=== PATIENT | male | born 1950 | race Caucasian/White ===

== ENCOUNTER 2018-01-03 07:46 | Day surgery (SDC) | payer OTHER ==
[~2018-01-03 07:46] MED LIST: CHONDR SU A NA/HYALUR INTRAOC KIT (SURGICARE) ONE; EPINEPHRINE INJ/PF 1 MG/1 ML AMPULE ONE; KETOROLAC TROMETHAMINE 0.45% 4 DROP/0.4 ML DROPERETTE OD PRN; LIDOCAINE 1% INJ-PF (10 MG/ML) 30 ML SDV ONE; TOBRAMYCIN SULFATE/DEXAMETH OPH OINTMENT 3.5 GM ONE
[2018-01-03] MEDS: TETRACAINE HCL 0.5% OPH SOLN 0.6 ML DROPERETTE OD PRN ×3 (08:07→08:43)
[2018-01-03] MEDS: TROPICAMIDE 1% OPH SOLN 3 ML OD PRN ×3 (08:08→08:32)
[2018-01-03] MEDS: CYCLOPENTOLATE 0.2%/PHENYLEPHRINE 1% OPH SOLN 2 ML OD PRN ×3 (08:08→08:32)
[2018-01-03] MEDS: BESIFLOXACIN HCL 0.6% OPH SUSP 5 ML BOTTLE OD PRN ×3 (08:09→09:00)
[2018-01-03] MEDS ORDERED: MIDAZOLAM 2 MG/2 ML INJ ONE (08:28)
[2018-01-03] MEDS ORDERED: FENTANYL CITRATE INJ/PF 100 MCG/2 ML AMPUL ONE (08:28)
== END 2018-01-03 09:51 | disposition home or self-care (01) ==
LOC: SC 07:46
PROVIDERS: ATTEND Ophthalmology
PROC: 08RJ3JZ Replacement of Right Lens with Synthetic Substitute, Percutaneous Approach (ICD-10-PCS; principal; 2018-01-03 08:30)
DX: H25.11 Age-related nuclear cataract, right eye (principal); J44.9 Chronic obstructive pulmonary disease, unspecified; K21.9 Gastro-esophageal reflux disease without esophagitis; I10 Essential (primary) hypertension; E78.00 Pure hypercholesterolemia, unspecified; E03.9 Hypothyroidism, unspecified; M19.90 Unspecified osteoarthritis, unspecified site; N40.0 Benign prostatic hyperplasia without lower urinary tract symptoms; Z86.73 Personal history of transient ischemic attack (TIA), and cerebral infarction without residual deficits; Z88.5 Allergy status to narcotic agent
CPT/HCPCS: 66984; V2630; J2250; J3490 ×3; J0171; J3010; 142

== ENCOUNTER 2018-01-17 08:04 | Day surgery (SDC) | payer OTHER ==
[~2018-01-17 08:04] MED LIST changes: -CHONDR SU A NA/HYALUR INTRAOC KIT (SURGICARE) ONE; -EPINEPHRINE INJ/PF 1 MG/1 ML AMPULE ONE; -KETOROLAC TROMETHAMINE 0.45% 4 DROP/0.4 ML DROPERETTE OD PRN; +KETOROLAC TROMETHAMINE 0.45% 4 DROP/0.4 ML DROPERETTE OS PRN; -LIDOCAINE 1% INJ-PF (10 MG/ML) 30 ML SDV ONE; -TOBRAMYCIN SULFATE/DEXAMETH OPH OINTMENT 3.5 GM ONE
[2018-01-17] MEDS ORDERED: TOBRAMYCIN SULFATE/DEXAMETH OPH OINTMENT 3.5 GM ONE (08:31)
[2018-01-17] MEDS ORDERED: LIDOCAINE 1% INJ-PF (10 MG/ML) 30 ML SDV ONE (08:31)
[2018-01-17] MEDS ORDERED: CHONDR SU A NA/HYALUR INTRAOC KIT (SURGICARE) ONE (08:31)
[2018-01-17] MEDS ORDERED: EPINEPHRINE INJ/PF 1 MG/1 ML AMPULE ONE (08:31)
[2018-01-17] MEDS: CYCLOPENTOLATE 0.2%/PHENYLEPHRINE 1% OPH SOLN 2 ML OS PRN ×3 (09:02→09:35)
[2018-01-17] MEDS: TROPICAMIDE 1% OPH SOLN 3 ML OS PRN ×3 (09:02→09:35)
[2018-01-17] MEDS: BESIFLOXACIN HCL 0.6% OPH SUSP 5 ML BOTTLE OS PRN ×3 (09:03→10:10)
[2018-01-17] MEDS: TETRACAINE HCL 0.5% OPH SOLN 0.6 ML DROPERETTE OS PRN ×3 (09:04→09:50)
[2018-01-17] MEDS ORDERED: FENTANYL CITRATE INJ/PF 100 MCG/2 ML AMPUL ONE (09:35)
[2018-01-17] MEDS ORDERED: MIDAZOLAM 2 MG/2 ML INJ ONE (09:35)
[2018-01-17] MEDS ORDERED: ONDANSETRON HCL INJ/PF 4 MG/2 ML SDV ONE (09:35)
[2018-01-17] MEDS ORDERED: BALANCED SALT IRRIG SOLN COMB2 15 ML BOTTLE ONE (09:54)
== END 2018-01-17 10:52 | disposition home or self-care (01) ==
LOC: SC 08:04
PROVIDERS: ATTEND Ophthalmology
DX: H25.12 Age-related nuclear cataract, left eye (principal); Z98.41 Cataract extraction status, right eye; M19.90 Unspecified osteoarthritis, unspecified site; J44.9 Chronic obstructive pulmonary disease, unspecified; E78.00 Pure hypercholesterolemia, unspecified; E03.9 Hypothyroidism, unspecified; F17.210 Nicotine dependence, cigarettes, uncomplicated; Z86.73 Personal history of transient ischemic attack (TIA), and cerebral infarction without residual deficits; Z79.899 Other long term (current) drug therapy; Z79.891 Long term (current) use of opiate analgesic; Z88.5 Allergy status to narcotic agent
CPT/HCPCS: 66984; V2630; J2250; J3490 ×4; J0171; J3010; J2405; 142

== ENCOUNTER 2018-12-26 14:37 | Emergency (ER) | payer OTHER, MEDICARE, MEDICAID ==
[2018-12-26] MEDS ORDERED: LIDOCAINE 2% URO-JET 5 ML KIT MM ONE (15:06)
--- NOTE | 2018-12-26 15:31 | ER Document Report ---
ED General - General Chief Complaint: Urinary Retention Stated Complaint: URINARY ISSUES Time Seen by Provider: 12/26/18 15:00 Primary Care Provider: CAROLINA REDDY [NO LOCAL MD] - Follow up as needed Mode of Arrival: Ambulatory Information source: Patient, Dr. Mejia, [facility] Records Notes: 68-year-old male with COPD, enlarged prostate who is postop day 1 from a right inguinal hernia repair presents with concern for inability to urinate. Patient states that his last normal urination was 17 hours prior to arrival. He states since that time he has just been "dribbling". Nursing spoke to the surgeon Dr. Mccarthy who advised an indwelling Prince and discharge home. Patient denies any abdominal pain, nausea, vomiting, testicular pain. Patient does have significant testicular swelling. TRAVEL OUTSIDE OF THE [place] IN LAST 30 DAYS: No - HPI Onset: Yesterday Onset/Duration: Sudden Quality of pain: No pain Severity: None Pain Level: Denies Associated symptoms: None Exacerbated by: Denies Relieved by: Denies Similar symptoms previously: No Recently seen / treated by doctor: Yes - Related Data Allergies/Adverse Reactions: morphine Adverse Reaction (Intermediate, Verified 01/15/18 12:07) Nausea, vomiting Past Medical History - General Information source: Patient, Dr. Mejia, [facility] Records - Social History Smoking Status: Current Every Day Smoker Cigarette use (# per day): Yes - 10 Chew tobacco use (# tins/day): No Smoking Education Provided: Yes - Smoking cessation counseling was provided for 4 minutes at the bedside Frequency of alcohol use: None Drug Abuse: None Lives with: Family Family History: Reviewed & Not Pertinent Patient has suicidal ideation: No Patient has homicidal ideation: No - Past Medical History Cardiac Medical History: Denies: Hx Heart Attack, Hx Hypertension Pulmonary Medical History: Denies: Hx Asthma Neurological Medical History: Reports: Hx Cerebrovascular Accident - SILENT STROKE FOUND WITH NUCLEAR TEST. Denies: Hx Seizures Renal/ Medical History: Denies: Hx Peritoneal Dialysis GI Medical History: Denies: Hx Hepatitis, Hx Hiatal Hernia - ING HERNIA WAITING FOR SX, Hx Ulcer Infectious Medical History: Denies: Hx Hepatitis Past Surgical History: Denies: Hx Open Heart Surgery, Hx Pacemaker Review of Systems - Review of Systems Notes: REVIEW OF SYSTEMS: CONSTITUTIONAL : Denies fever, chills, or sweats. Denies recent illness. Denies weight loss, recent hospitalizations. EENT: Denies visual changes, eye pain. Denies sore throat, oral lesions, difficulty swallowing. CARDIOVASCULAR: Denies chest pain. Denies palpitations. Denies lower extremity edema. RESPIRATORY: Denies cough. Denies shortness of breath, wheezing. GASTROINTESTINAL: Denies abdominal pain or distention. Denies nausea, vomiting, or diarrhea. Denies blood in vomitus, stools, or per rectum. Denies black, tarry stools. Denies constipation. GENITOURINARY: Denies painful urination, frequency, blood in urine, testicular pain or penile discharge. MUSCULOSKELETAL: Denies back or neck pain or stiffness. Denies joint pain or swelling. SKIN: Denies rash, lesions or sores. HEMATOLOGIC : Denies easy bruising or bleeding. LYMPHATIC: Denies swollen glands. NEUROLOGICAL: Denies confusion or altered mental status. Denies loss of consciousness. Denies dizziness or lightheadedness. Denies headache. Denies weakness or paralysis. Denies problems difficulty with ambulation, slurred speech. Denies sensory loss, numbness, or tingling. Denies seizures. PSYCHIATRIC: Denies anxiety or stress. Denies depression, suicidal ideation, or Physical Exam - Vital signs Vitals: Temp Pulse Resp BP Pulse Ox 98.0 F 79 25 H 124/87 H 96 12/26/18 14:55 12/26/18 14:55 12/26/18 14:55 12/26/18 14:55 12/26/18 14:55 - Notes Notes: PHYSICAL EXAMINATION: GENERAL: Well-appearing, well-nourished and in no acute distress. HEAD: Atraumatic, normocephalic. EYES: Pupils equal round and reactive to light, extraocular movements intact, sclera anicteric, conjunctiva are normal. ENT: Nares patent, oropharynx clear without exudates. Moist mucous membranes. NECK: Normal range of motion, supple without lymphadenopathy LUNGS: Breath sounds clear to auscultation bilaterally and equal. No wheezes rales or rhonchi. HEART: Regular rate and rhythm without murmurs ABDOMEN: Soft, nontender, nondistended abdomen. No guarding, no rebound. No masses appreciated. Musculoskeletal: Normal range of motion, no pitting or edema. No cyanosis. : Testicular swelling, ecchymosis. Surgical incision in the right inguinal region is clean dry and intact. Bedside ultrasound shows urinary retention with a bladder volume of 600 cc. NEUROLOGICAL: Cranial nerves grossly intact. Normal speech, normal gait. Normal sensory, motor exams PSYCH: Normal mood, normal affect. SKIN: Warm, Dry, normal turgor, no rashes or lesions noted. Course - Re-evaluation Re-evalutation: Temp Pulse Resp BP Pulse Ox 98.0 F 79 25 H 124/87 H 96 12/26/18 14:55 12/26/18 14:55 12/26/18 14:55 12/26/18 14:55 12/26/18 14:55 12/26/18 15:29 68-year-old male status post inguinal hernia repair presents with urinary retention. Vital signs reviewed and within normal limits. Patient does not appear toxic or dehydrated. He is in no acute distress. Bedside ultrasound was performed and confirmed urinary retention with a bladder volume of 600 cc. Prince was placed after Urojet insertion. 12/26/18 16:04 Prince catheter placed and thousand cc of volume output was recorded. Leg bag and caring instructions were given to the patient. He was advised to follow-up with his surgeon as scheduled. Patient was evaluated and treated as appropriate for the patient's presenting symptoms and complaint, with consideration of any critical or life threatening conditions that may be associated with their obtained history and exam as noted above. All results were discussed with patient. Patient provided the opportunity to ask questions, and express concerns. Patient was educated on treatments based on their presumed diagnosis as noted above. At this time we will discharge the patient with return precautions and follow-up recommendations. Verbal discharge instructions given a the bedside. Medication warnings reviewed. Patient is in agreement with this plan and has verbalized understanding of return precautions. After careful consideration I feel that that patient can be safely discharged from the emergency department, they were advised to followup with a primary care physician in 2-3 days. Dictation on this chart was performed using voice recognition software and may result in unintended grammatical, spelling, syntax or errors. - Vital Signs Vital signs: Temp Pulse Resp BP Pulse Ox 98.0 F 70 14 113/79 97 12/26/18 17:45 12/26/18 17:45 12/26/18 17:45 12/26/18 17:45 12/26/18 17:45 Discharge - Discharge Clinical Impression: Urinary retention, Prince catheter in place Condition: Good Disposition: HOME, SELF-CARE Instructions: Prince Catheter Care ([facility]), Urinary Retention ([facility]) Additional Instructions: Please follow-up with your surgeon Dr. Mccarthy as scheduled. Please return to the emergency department with any concerns or problems with your Prince catheter. Follow up with your [id number] hours for further care or return to the ED IMMEDIATELY if symptoms worsen or you have any concerns. If you cannot afford to follow up with your primary care physician a list of low cost clinics have been provided at the end of your discharge papers as well. Most prescribed medications have multiple side effects. The safest thing to do is when filling your prescription speak to your pharmacist regarding possible interactions with your normal home medications and over the counter medications such as Ibuprofen, Tylenol, Benadryl. If you experience any symptoms that cause you discomfort or concern you should discontinue the medication immediately and return to the emergency room or call your primary care physician. Forms: Elevated Blood Pressure Referrals: LOCAL,NO [NO LOCAL MD] - Follow up as needed
[2018-12-26 17:46] VITALS: BP 113/79
== END 2018-12-26 17:47 | disposition home or self-care (01) ==
LOC: ER 14:37
DX: N40.1 Benign prostatic hyperplasia with lower urinary tract symptoms (principal); R33.8 Other retention of urine; Z98.890 Other specified postprocedural states; J44.9 Chronic obstructive pulmonary disease, unspecified; F17.210 Nicotine dependence, cigarettes, uncomplicated; Z71.6 Tobacco abuse counseling
CPT/HCPCS: 99406; 99284; 51702; J3490

== ENCOUNTER 2019-07-01 03:54 | Emergency (ER) | payer MEDICARE, OTHER, MEDICAID ==
[2019-07-01 05:33] LABS: ABSOLUTE BASOPHILS # (AUTO) 0.1 10^3/uL (0.0-0.2); ABSOLUTE EOSINOPHILS # (AUTO) 0.1 10^3/uL (0.0-0.6); ABSOLUTE LYMPHOCYTES (AUTO) 2.7 10^3/uL (0.5-4.7); ABSOLUTE MONOCYTES (AUTO) 0.4 10^3/uL (0.1-1.4); ABSOLUTE NEUT (AUTO) 2.1 10^3/uL (1.7-8.2); BASOPHILS % (AUTO) 1.6 % (0-2); EOSINOPHILS % (AUTO) 1.1 % (0-6); HEMATOCRIT 34.4 % (37.9-51.0); HEMOGLOBIN 11.6 g/dL (13.5-17.0); LYMPHOCYTES % (AUTO) 51.4 % (13-45); MEAN CORPUSCULAR HEMOGLOBIN 31.7 pg (27.0-33.4); MEAN CORPUSCULAR HGB CONC 33.9 g/dL (32.0-36.0); MEAN CORPUSCULAR VOLUME 94 fl (80-97); PLATELET COUNT 176 10^3/uL (150-450); RED BLOOD COUNT 3.68 10^6/uL (4.35-5.55); RED CELL DISTRIBUTION WIDTH 15.3 % (11.5-14.0); SEGMENTED NEUTROPHILS % (AUTO) 38.9 % (42-78); TOTAL CELLS COUNTED % (AUTO) 100 %; WHITE BLOOD COUNT 5.4 10^3/uL (4.0-10.5)
[2019-07-01 05:48] LABS: ALBUMIN 3.8 g/dL (3.5-5.0); ALCOHOL 208 mg/dL (NONE DETECTED); ALKALINE PHOSPHATASE 69 U/L (38-126); ANION GAP 12 (5-19); ASPARTATE AMINO TRANSFERASE 48 U/L (17-59); BILIRUBIN,DIRECT 0.2 mg/dL (0.0-0.4); BILIRUBIN,TOTAL 0.4 mg/dL (0.2-1.3); BLOOD UREA NITROGEN 10 mg/dL (7-20); CALCIUM 8.6 mg/dL (8.4-10.2); CARBON DIOXIDE 22 mmol/L (22-30); CHLORIDE 108 mmol/L (98-107); GLUCOSE 88 mg/dL (75-110); POTASSIUM 3.7 mmol/L (3.6-5.0); TOTAL PROTEIN 7.3 g/dL (6.3-8.2)
[2019-07-01 05:50] LABS: ACETAMINOPHEN < 10 ug/mL (10-30); SALICYLATE < 1.0 mg/dL (2.0-20.0)
--- NOTE | 2019-07-01 05:51 | ER Document Report ---
ED Psych Disorder / Suicide - General Chief Complaint: Psych Problem Stated Complaint: INVOLUNTARY COMMITMENT Time Seen by Provider: 07/01/19 04:23 Primary Care Provider: LAURE GREEN FNP [Primary Care Provider] - Follow up as needed TRAVEL OUTSIDE OF THE [place] IN LAST 30 DAYS: No - HPI Notes: This is a 69-year-old male presenting in long horseman custody with involuntary commitment papers for evaluation of suicidal ideation. Patient stated that he wanted to "shoot himself in the head with a 45 gone" patient also reportedly made threats that he was going to hang himself and shoot self. Of note patient is intoxicated, talking to himself and reportedly holding conversations with people not in the room. - Related Data Allergies/Adverse Reactions: morphine Adverse Reaction (Intermediate, Verified 07/01/19 04:29) Nausea, vomiting Past Medical History - Social History Smoking Status: Current Every Day Smoker Frequency of alcohol use: Occasional Drug Abuse: None Family History: Reviewed & Not Pertinent Patient has suicidal ideation: Yes Patient has homicidal ideation: No - Past Medical History Cardiac Medical History: Reports: Hx Atrial Fibrillation Denies: Hx Heart Attack, Hx Hypertension Pulmonary Medical History: Denies: Hx Asthma Neurological Medical History: Reports: Hx Cerebrovascular Accident - SILENT STROKE FOUND WITH NUCLEAR TEST. Denies: Hx Seizures Renal/ Medical History: Denies: Hx Peritoneal Dialysis GI Medical History: Denies: Hx Hepatitis, Hx Hiatal Hernia - ING HERNIA WAITING FOR SX, Hx Ulcer Infectious Medical History: Denies: Hx Hepatitis Past Surgical History: Denies: Hx Open Heart Surgery, Hx Pacemaker Review of Systems - Review of Systems -: Yes ROS unobtainable due to patient's medical condition - Patient is intoxicated, smells of products of EtOH metabolism Physical Exam - Vital signs Vitals: Temp Pulse Resp BP Pulse Ox 98 F 62 17 144/83 H 100 07/01/19 03:54 07/01/19 03:54 07/01/19 03:54 07/01/19 03:54 07/01/19 03:54 - Notes Notes: PHYSICAL EXAMINATION: GENERAL: Patient appears disheveled, unkempt, and smells of byproducts of EtOH metabolism. HEAD: Atraumatic, normocephalic. EYES: Pupils equal round and reactive to light, extraocular movements intact, sclera anicteric, conjunctiva are normal. ENT: nares patent, oropharynx clear without exudates. Moist mucous membranes. NECK: Normal range of motion, supple without lymphadenopathy LUNGS: Breath sounds clear to auscultation bilaterally and equal. No wheezes rales or rhonchi. HEART: Regular rate and rhythm without murmurs ABDOMEN: Soft, nontender, normoactive bowel sounds. No guarding, no rebound. No masses appreciated. EXTREMITIES: Normal range of motion, no pitting or edema. No cyanosis. NEUROLOGICAL: No focal neurological deficits. Moves all extremities spontaneously and on command. PSYCH: Normal mood, normal affect. SKIN: Skin exam is significant for a 10 cm skin tear on the dorsal aspect of the patient's right forearm Course - Re-evaluation Re-evalutation: 07/01/19 05:51 Patient is sitting quietly in his room at this time. The patient's skin tear is being treated with antibiotic ointment and nonadherent dressing Patient remains under IVC papers at this time Differential diagnosis: Suicidal ideation, homicidal ideation, alcohol abuse, substance abuse, skin tear, skin laceration Assessment and plan: This is a 69-year-old male presenting intoxicated under IVC papers and will be evaluated by Dr. Grimm today for suicidal ideation. Final diagnoses: #1 suicidal ideation #2 alcohol intoxication - Vital Signs Vital signs: Temp Pulse Resp BP Pulse Ox 98 F 63 13 132/81 H 100 07/01/19 03:54 07/01/19 04:58 07/01/19 05:01 07/01/19 05:01 07/01/19 05:01 - Laboratory Result Diagrams: 07/01/19 05:25 07/01/19 05:25 Laboratory results interpreted by me: 07/01/19 05:25 RBC 3.68 L Hgb 11.6 L Hct 34.4 L RDW 15.3 H Lymph % (Auto) 51.4 H Seg Neutrophils % 38.9 L - EKG Interpretation by Me Additional EKG results interpreted by me: 07/01/19 05:55 EKG done at 051 7 hours on 07/01/2019 was interpreted by this MD. Findings: Rate controlled atrial fibrillation, heart rate 51, normal axis, narrow QRS, nonspecific ST segments. - Transfer of Care Care transferred to following provider: DR ROTH AT 0600 HOURS Discharge - Discharge Clinical Impression: Suicidal ideation, Acute alcohol intoxication Condition: Fair Disposition: PSYCH HOSP/UNIT Referrals: LAURE GREEN FNP [Primary Care Provider] - Follow up as needed
--- NOTE | 2019-07-01 06:26 | EKG REPORT ---
SEVERITY:- ABNORMAL ECG - ATRIAL FIBRILLATION LOW VOLTAGE IN FRONTAL LEADS CONSIDER ANTEROSEPTAL INFARCT PROLONGED QT INTERVAL : Confirmed by: Danielito Velazquez MD 01-Jul-2019 06:25:27
[2019-07-01 07:51] LABS: APPEARANCE,URINE CLEAR; BILIRUBIN,URINE NEGATIVE (NEGATIVE); COLOR,URINE STRAW; GLUCOSE, URINE NEGATIVE (NEGATIVE); KETONES,URINE NEGATIVE (NEGATIVE); LEUKOCYTE ESTERASE,URINE NEGATIVE (NEGATIVE); NITRITE,URINE NEGATIVE (NEGATIVE); PROTEIN,URINE NEGATIVE (NEGATIVE); URINE SPECIFIC GRAVITY 1.003; UROBILINOGEN,URINE NEGATIVE mg/dL (<2.0)
[2019-07-01 08:08] LABS: URINE AMPHETAMINES SCREEN NEGATIVE; URINE BARBITURATES SCREEN NEGATIVE; URINE BENZODIAZEPINES SCREEN NEGATIVE; URINE COCAINE SCREEN NEGATIVE; URINE MARIJUANA (THC) SCREEN NEGATIVE; URINE METHADONE SCREEN NEGATIVE; URINE PHENCYCLIDINE SCREEN NEGATIVE
--- NOTE | 2019-07-01 11:55 | EKG REPORT ---
SEVERITY:- ABNORMAL ECG - SINUS RHYTHM LOW VOLTAGE IN FRONTAL LEADS CONSIDER ANTEROSEPTAL INFARCT : Confirmed on behalf of: Danielito Velazquez MD 01-Jul-2019 11:54:55
--- NOTE | 2019-07-01 11:59 | ER Document Report ---
Doctor's Note Notes: 07/01/19 11:50 S: 69-year-old the emergency department with the past 8 hours with complaints of acute alcohol intoxication and suicidal ideation. He was brought in with [facility] last night after he stated he was given she himself in the head and hang himself. This morning the patient is no longer acutely intoxicated. He states that he is not suicidal. He states that a young boy said something about [place] last night and he reacted poorly to the comment. He states that he rarely drinks but last night because he was so upset about the comment he went and got intoxicated. He denies any current SI, HI, hallucinations. O: Constitutional: Sitting up in bed, eating breakfast, alert. Cardiac: Regular rate and rhythm, no rubs, gallops, or murmurs. Respiratory: No acute respiratory distress. Lungs are clear bilaterally. No wheezes, rhonchi, rales. Abdomen: Soft, nontender, nondistended. Neuro: Cranial nerves II through XII intact, no pronator drift, normal [id number], he is alert and oriented x3. Psych: Patient is interactive and friendly. No SI, HI or hallucinations. A/P: Patient came in last night with complaints of suicidal ideation while intoxicated. He is clinically sober this morning and states he is no longer suicidal. Will await behavioral health team consultation and then plan for disposition. Patient aware of plan and he agrees.
[2019-07-01 15:10] VITALS: BP 145/60
--- NOTE | 2019-07-02 12:34 | PSYCHOLOGICAL NOTE ---
Psych Note - Psych Note Date seen by psych provider: 07/01/19 Time seen by psych provider: 08:48 - Chart review at 0848. Evaluation from 1126- 1138. Spoke to neighbor Laura who was visiting to include in plan of care. Psych Note: Presenting Problem: IVC via [facility] for Si with threat to shoot self with automatic 45, said he would hang himself, had some psychosis and was under the influence of alcohol (Serum Alcohol Level upon arrival to the ED was 208). Patient reported being "fine" today. 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 He stated he "threw the gun, doesn't recall if it was loaded, doesn't remember where he threw it, is not sure where he got it from" and denied having any other firearms in the home. He stated "I really appreciate the deputies, if they had not been there I may have done something real damn stupid, stupid as shit." He reported "I wasn't raised to believe in suicide, I have [place] in me and suicide means your soul does not get to pass on." He stated "I just want to get home to my babies (two female dogs)." Patient's neighbor/ED Laura came to visit patient. She stated she had recently had back surgery so was stuck at home the past month. Patient mentioned a young kun came up on a motor cycle asking for a Megha and then talked about being in [place] which upset hawa mccarty because he seemed way too young to have been and then something triggered him. She identified there were only a couple bottles of alcohol left at his home and she took them to her house. He again told the same story about the gun (throwing it, unsure where, unsure if loaded, unsure where he got it from) to her. He talked about his VA Benefits and neighbor brought up 100% disabled as well as some leg surgeries and other medical procedures patient has undergone. Observed long dirty fingernails and toenails. Patient described himself as truthful and honest which neighbor agreed to. Patient was alert and oriented x5 with linear thinking, had a chance to sober up from alcohol intoxication, denied current SI/HI and mentioned his beliefs are that suicide means your soul does not get to pass on, seems to have had a PTSD trigger/episode, mood was euthymic with congruent affect and brightened when neighbor was present, he was able to engage and carry on dialogue conversation which was within normal limits for rate/tone/prosody. Obtained collateral from [place] with [employer]. He stated he did not see a gun and LE could not find one. He reported patient was very intoxicated, kept saying he was going to kill himself with 45 and his house was unkept/unsafe living coelho. He identified he would be making an APS report. Diagnosis: PTSD Trigger and Episode Acute Alcohol Intoxication Impression/Plan: Patient is cleared from acute psychiatric services. Recommendation to rescind IVC. Patient was alert and oriented x5 with linear thinking, had a chance to sober up from alcohol intoxication, denied current SI/HI and mentioned his beliefs are that suicide means your soul does not get to pass on, seems to have had a PTSD trigger/episode, mood was euthymic with c ongruent affect and brightened when neighbor was present, he was able to engage and carry on dialogue conversation which was within normal limits for rate/tone/prosody. Patient stated he threw the gun, is unsure where, and does not have any firearms in the home. [facility] Raf made aware of discharge home with neighbor Laura on site so provided transportation. Neighbor Laura included in plan of care and already removed the couple bottles of liquor that had remained at his house (now at her house). [facility] making an APS report (patient did comment his house is dirty and if her could get around to clean he would). Patient made aware [facility] would follow up since they were involved and he commented "I'm okay I don't need any help." He seemed prideful and even commented his belief is that he must be strong. He was informed it was [facility] responsibility to follow up so they would and he said he understood. Consulted with Dr. Grimm regarding the management and care of patient. ED physician in agreement with recommendations.
== END 2019-07-01 15:00 | disposition home or self-care (01) ==
LOC: ER 03:54
DX: F10.129 Alcohol abuse with intoxication, unspecified (principal); F43.10 Post-traumatic stress disorder, unspecified; F43.9 Reaction to severe stress, unspecified; S51.811A Laceration without foreign body of right forearm, initial encounter; X58.XXXA Exposure to other specified factors, initial encounter; F17.200 Nicotine dependence, unspecified, uncomplicated; I48.91 Unspecified atrial fibrillation; Z86.73 Personal history of transient ischemic attack (TIA), and cerebral infarction without residual deficits
CPT/HCPCS: 36415; 80053; 80307; 81001; 85025; 93005; 93010; 99285

== ENCOUNTER 2020-03-18 09:52 | Emergency (ER) | payer OTHER, MEDICARE, MEDICAID ==
[2020-03-18 12:03] LABS: ABSOLUTE BASOPHILS # (AUTO) 0.1 10^3/uL (0.0-0.2); ABSOLUTE EOSINOPHILS # (AUTO) 0.1 10^3/uL (0.0-0.6); ABSOLUTE LYMPHOCYTES (AUTO) 2.7 10^3/uL (0.5-4.7); ABSOLUTE MONOCYTES (AUTO) 0.6 10^3/uL (0.1-1.4); ABSOLUTE NEUT (AUTO) 4.2 10^3/uL (1.7-8.2); BASOPHILS % (AUTO) 1.7 % (0-2); EOSINOPHILS % (AUTO) 1.6 % (0-6); HEMATOCRIT 38.9 % (37.9-51.0); HEMOGLOBIN 13.1 g/dL (13.5-17.0); LYMPHOCYTES % (AUTO) 34.6 % (13-45); MEAN CORPUSCULAR HGB CONC 33.7 g/dL (32.0-36.0); MEAN CORPUSCULAR VOLUME 89 fl (80-97); MONOCYTES % (AUTO) 8.1 % (3-13); PLATELET COUNT 314 10^3/uL (150-450); RED BLOOD COUNT 4.36 10^6/uL (4.35-5.55); RED CELL DISTRIBUTION WIDTH 15.5 % (11.5-14.0); TOTAL CELLS COUNTED % (AUTO) 100 %; WHITE BLOOD COUNT 7.8 10^3/uL (4.0-10.5)
[2020-03-18 12:20] LABS: ALBUMIN 3.5 g/dL (3.5-5.0); ALCOHOL 195 mg/dL (NONE DETECTED); ALKALINE PHOSPHATASE 85 U/L (38-126); ANION GAP 9 (5-19); ASPARTATE AMINO TRANSFERASE 21 U/L (17-59); BILIRUBIN,TOTAL 0.2 mg/dL (0.2-1.3); BLOOD UREA NITROGEN 11 mg/dL (7-20); CALCIUM 8.8 mg/dL (8.4-10.2); CARBON DIOXIDE 23 mmol/L (22-30); CHLORIDE 111 mmol/L (98-107); GLUCOSE 116 mg/dL (75-110); POTASSIUM 3.9 mmol/L (3.6-5.0); TOTAL PROTEIN 7.1 g/dL (6.3-8.2)
[2020-03-18 12:25] LABS: ACETAMINOPHEN < 10 ug/mL (10-30); SALICYLATE < 1.0 mg/dL (2.0-20.0)
--- NOTE | 2020-03-18 13:05 | ER Document Report ---
ED Psych Disorder / Suicide <PRABHAKAR HOUSER - Last Filed: 03/19/20 08:06> - General TRAVEL OUTSIDE OF THE [place] IN LAST 30 DAYS: No <JOSH CURTIS - Last Filed: 03/19/20 20:29> - General Chief Complaint: Psych Problem Stated Complaint: IVC Time Seen by Provider: 03/18/20 11:05 Notes: 70-year-old male with past medical history of PTSD and alcohol abuse brought in by [facility]'s department for thoughts of hurting himself. States that he does not know why he is here but when asked if he would hurt himself states that he just wants to end it all. States that his plan would be taking a 45 under his chin and shooting himself. States that he occasionally wants to hurt other people but will never do that. Drank 1 gallon of whiskey this morning. States he takes multiple medications prescribed from the [facility] but he does not know which meds he is taking. He did not take any additional medication at this time. Denies any headaches, fevers, chills, nausea vomiting or additional symptoms at this time. (JOSH CURTIS) - Related Data Allergies/Adverse Reactions: morphine Adverse Reaction (Intermediate, Verified 07/01/19 04:29) Nausea, vomiting Past Medical History - Social History Smoking Status: Current Every Day Smoker Frequency of alcohol use: Heavy Drug Abuse: None Family History: Reviewed & Not Pertinent - Past Medical History Cardiac Medical History: Reports: Hx Atrial Fibrillation Denies: Hx Heart Attack, Hx Hypertension Pulmonary Medical History: Denies: Hx Asthma Neurological Medical History: Reports: Hx Cerebrovascular Accident - SILENT STR STAR FOUND WITH NUCLEAR TEST. Denies: Hx Seizures Renal/ Medical History: Denies: Hx Peritoneal Dialysis GI Medical History: Denies: Hx Hepatitis, Hx Hiatal Hernia - ING HERNIA WAITING FOR SX, Hx Ulcer Musculoskeletal Medical History: Reports None Skin Medical History: Reports None Infectious Medical History: Denies: Hx Hepatitis Past Surgical History: Denies: Hx Open Heart Surgery, Hx Pacemaker <JOSH CURTIS - Last Filed: 03/19/20 20:29> Review of Systems - Review of Systems Constitutional: No symptoms reported EENT: No symptoms reported Cardiovascular: No symptoms reported Respiratory: No symptoms reported Gastrointestinal: No symptoms reported Genitourinary: No symptoms reported Male Genitourinary: No symptoms reported Musculoskeletal: No symptoms reported Neurological/Psychological: Suicidal ideation <JOSH CURTIS - Last Filed: 03/19/20 20:29> Physical Exam - Vital signs Interpretation: Normal <JOSH CURTIS - Last Filed: 03/19/20 20:29> - Vital signs Vitals: Temp Pulse Resp BP Pulse Ox 97.8 F 87 18 148/93 H 95 03/18/20 09:58 03/18/20 09:58 03/18/20 09:58 03/18/20 09:58 03/18/20 09:58 Notes: presented hypertensive, but last vitals he is normotensive. (JOSH CURTIS) - Notes Notes: Adult General: GENERAL: Alert, interacts well. No acute distress HEAD: Normocephalic, atraumatic EYES: Extraocular movements intact. ENT: Airway patent. Nares patent. NECK: Full range of motion. Supple. Trachea midline. LUNGS: Nontender chest wall. HEART: Regular rate and rhythm. No murmurs, rubs or gallops. ABDOMEN: Soft, nontender. Nondistended. GENITOURINARY: Deferred EXTREMITIES: Moves all 4 extremities spontaneously. BACK: Moves all extremities with full range of motion. NEUROLOGICAL: Alert and oriented x3. Normal speech. Strength 5/ 5 in all extremities. PSYCH: Normal affect, normal mood. SKIN: Warm, dry, normal turgor. No rashes or lesions noted. (JOSH CURTIS) Course - Laboratory Result Diagrams: 03/18/20 11:45 03/18/20 11:45 <PRABHAKAR HOUSER - Last Filed: 03/19/20 08:06> - Laboratory Result Diagrams: 03/18/20 11:45 03/18/20 11:45 <JOSH CURTIS - Last Filed: 03/19/20 20:29> - Re-evaluation Re-evalutation: 03/19/20 00:00 Hematology is unremarkable. Chemistries are also unremarkable. Urinalysis is unremarkable. Alcohol level is 195. Salicylates and acetaminophen is negative. Urine drug screen is negative. Patient is medically clear for mental health evaluation by Dr. Grimm and staff. (PRABHAKAR HOUSER) 03/18/20 23:04 Patient continues to rest in the bed. No acute distress. Pending mental health consult. (JOSH CURTIS) - Vital Signs Vital signs: Temp Pulse Resp BP Pulse Ox 98.3 F 79 16 166/82 H 98 03/19/20 15:48 03/19/20 15:48 03/19/20 15:48 03/19/20 15:48 03/19/20 15:48 - Laboratory Laboratory results interpreted by me: 03/18/20 03/18/20 03/18/20 11:45 11:45 15:07 Hgb 13.1 L RDW 15.5 H Chloride 111 H Glucose 116 H Urine Blood SMALL H Salicylates < 1.0 L Acetaminophen < 10 L Discharge <PRABHAKAR HOUSER - Last Filed: 03/19/20 08:06> <JOSH CURTIS - Last Filed: 03/19/20 20:29> - Discharge Clinical Impression: Suicidal ideation, Involuntary commitment Condition: Stable Disposition: PSYCH HOSP/UNIT
[2020-03-18 15:24] LABS: APPEARANCE,URINE CLEAR; BILIRUBIN,URINE NEGATIVE (NEGATIVE); COLOR,URINE STRAW; GLUCOSE, URINE NEGATIVE (NEGATIVE); KETONES,URINE NEGATIVE (NEGATIVE); LEUKOCYTE ESTERASE,URINE NEGATIVE (NEGATIVE); NITRITE,URINE NEGATIVE (NEGATIVE); PROTEIN,URINE NEGATIVE (NEGATIVE); URINE SPECIFIC GRAVITY 1.008; UROBILINOGEN,URINE NEGATIVE mg/dL (<2.0)
[2020-03-18 15:42] LABS: URINE AMPHETAMINES SCREEN NEGATIVE; URINE BARBITURATES SCREEN NEGATIVE; URINE BENZODIAZEPINES SCREEN NEGATIVE; URINE COCAINE SCREEN NEGATIVE; URINE MARIJUANA (THC) SCREEN NEGATIVE; URINE METHADONE SCREEN NEGATIVE; URINE PHENCYCLIDINE SCREEN NEGATIVE
--- NOTE | 2020-03-18 20:45 | PSYCHOLOGICAL NOTE ---
Psych Note - Psych Note Date seen by psych provider: 03/18/20 Time seen by psych provider: 12:30 Psych Note: Patient presented to [facility] ED via [facility] department under 24-hour petition for evaluation. IVC petition reports concern for suicidal ideation with a plan of shooting himself, neglect in self-care and increased alcohol consumption. Clinical presentation Alcohol intoxication Underweight Unkempt appearance Despondent Reporting suicidal ideation Impression\plan: Patient is recommended for full IVC. Paperwork is signed and placed in patient's chart. Patient presents with reported self-medicating alcohol abuse after many years of sobriety. Patient relapsed in June 2019. Patient continues to make suicidal comments during evaluation and reportedly stated to deputies, friends and mobile crisis responder that his plan was to put his gun to his chin and shoot himself. Dr. Grimm was consulted to care management of this patient; attending physicians in agreement with recommendations and disposition. Case management: [facility]-report bed availability, faxed patient's paperwork
--- NOTE | 2020-03-18 21:54 | EKG REPORT ---
SEVERITY:- ABNORMAL ECG - SINUS RHYTHM ATRIAL PREMATURE COMPLEX CONSIDER ANTEROSEPTAL INFARCT : Confirmed by: Valerie Cardozo MD 18-Mar-2020 21:54:13
--- NOTE | 2020-03-19 11:07 | PSYCHOLOGICAL NOTE ---
Psych Note - Psych Note Date seen by psych provider: 03/19/20 Time seen by psych provider: 10:20 Psych Note: Patient presented to [facility] ED via [facility] department under 24-hour petition for evaluation. IVC petition reports concern for suicidal ideation with a plan of shooting himself, neglect in self-care and increased alcohol consumption. Check in conducted with patient: Patient is very pleasant smiling and engages with clinician. He reports that he is "fine I am not going to hurt myself or anyone else." Patient continues to report that it is just when he drinks he gets "depressed or something." Patient then states "I will be all right just let me go home to get some rest." When discussing patient's relapse with alcohol (patient was last seen June 2019 and had reported a recent relapse after many years of sobriety), he states "I do not abuse it, I just get to drinking until I pass out. I have decided Monday night was the end of my drinking." Patient then reports "it's just with March coming up..." Clinician notes at this point patient appears to choke up looks up at the ceiling and appears to be tearing up; he will not explain or discuss further. Patient then reports "I do not mind going to those meetings or something." When asked about the patient having a gun in the home he denies; he reports "I have plenty of knives but no gun." Patient was reminded that he threatened to shoot himself not just this past June but just prior to arrival for this visit. Patient reports "take it this way I know where to get a gun, it is not at my house." Patient then states "please just give me my paper so I can go home, I will be alright." Clinical presentation no insight into alcohol abuse very pleasant and polite but guarded about true thoughts and feelings (ie comment about March 21) Suicidal ideation Underweight Unkempt appearance Impression\\plan: Patient is recommended for continued IVC. Patient presented with reported self-medicating alcohol abuse after many years of sobriety. Patient relapsed in June 2019. While patient is very pleasant and polite with [facility] staff, he is guarded in his true thoughts and emotions and makes comments that suggest continued suicidal ideation (i.e. "I have plenty of knives .... Take it this way, I know where to get a gun and it is not at my house.") Dr. Grimm was consulted to care management of this patient; attending physicians in agreement with recommendations and disposition. Case management: [facility]-patient's paperwork current under review; requested updated information. Faxed requested information. Luis Epps of [facility] contacted behavioral health team at 12:59pm to report patient has a bed, pending a negative COVID test. Clinician requested rapid COVID test to facilitate placement.
--- NOTE | 2020-03-19 15:06 | ER Document Report ---
Doctor's Note Notes: 03/19/20 15:02 Patient's vital signs and previous labs, diagnostic imaging reviewed. Reviewed mental health notes, nurses notes and previous vital signs. Patient is in no distress at this time. denies any SI or HI. [facility] [place]. States he can receive help for his alcoholism here. He is agitated that he is still here. Denies any headache, fever, chills or additional symptoms at this time. General: Alert, oriented Heart: Regular rate rhythm Lungs: Clear to auscultation bilaterally Skin: dry, warm, normal turgor A&P: We are [facility] the [facility] [place]
[2020-03-19 15:48] VITALS: BP 166/82
== END 2020-03-19 20:35 ==
LOC: ER 09:52
DX: Z04.6 Encounter for general psychiatric examination, requested by authority (principal); R45.851 Suicidal ideations; F10.20 Alcohol dependence, uncomplicated; F17.200 Nicotine dependence, unspecified, uncomplicated; Z79.899 Other long term (current) drug therapy; Z03.818 Encounter for observation for suspected exposure to other biological agents ruled out
CPT/HCPCS: 93005; 99285; 36415; 80307 ×4; 85025; 87635; 80053; 81001; 93010; C9803